=== PATIENT | female | born 1965 | race Caucasian/White ===

== ENCOUNTER 2021-05-10 09:12 | Outpatient (CLI) | payer OTHER ==
[2021-05-10 20:40] LABS: SARS-CoV-2 PCR by NAA Not Detected (NotDetected)
== END 2021-05-10 09:13 | disposition home or self-care (01) ==
LOC: LABBT 09:12
PROVIDERS: ATTEND Ophthalmology Retina Specialist
DX: Z01.812 Encounter for preprocedural laboratory examination (principal); H43.392 Other vitreous opacities, left eye; Z20.822 Contact with and (suspected) exposure to COVID-19
CPT/HCPCS: U0003; U0005

== ENCOUNTER 2022-08-20 13:16 | Outpatient (CLI) | payer BC | END 2022-08-20 13:17 | disposition home or self-care (01) | LOC: BICMAMMO 13:16 | PROVIDERS: ATTEND Student in an Organized Health Care Education/Training Program | DX: N64.89 Other specified disorders of breast (principal) | CPT/HCPCS: G0279 ==